=== PATIENT | male | born 1990 | race Asian ===

== ENCOUNTER 2021-06-16 09:41 | Emergency (ER) | payer MEDICAID ==
[~2021-06-16] VITALS: Ht 165.1 cm; Wt 81.0 kg
[2021-06-16 09:48] VITALS: BP 130/79
[2021-06-16] MEDS ORDERED: LORAZEPAM 1MG TABLET PO ONE (10:15)
[2021-06-16 10:18] LABS: BASOPHILS % 0.2 % (0.0-2.0); HEMATOCRIT. 46.3 % (42.0-52.0); HEMOGLOBIN. 15.5 g/dL (14.0-18.0); LYMPHOCYTES % 9.8 % (20.0-50.0); MEAN CORPUSCULAR VOLUME 77.6 fL (80.0-94.0); MONOCYTES % 6.9 % (2.0-8.0); NEUTROPHILS % 83.1 % (40.0-76.0); PLATELET 259 x1000/uL (130-400); RED BLOOD CELL COUNT 5.96 mill/uL (4.7-6.1); RED CELL DISTRIBUTION WIDTH 12.7 % (11.6-14.6)
[2021-06-16 10:25] LABS: CHLORIDE 103 mEq/L (98-107)
[2021-06-16 10:29] LABS: ETHANOL BLOOD < 10 mg/dL
[2021-06-16 11:23] LABS: CLARITY URINE CLEAR (CLEAR); COLOR URINE DARK YELLOW (YELLOW); KETONES URINE 2+ (NEGATIVE); LEUKOCYTE ESTERASE URINE TRACE (NEGATIVE); NITRITE URINE NEGATIVE (NEGATIVE); OCCULT BLOOD URINE NEGATIVE (NEGATIVE); PROTEIN URINE TRACE (NEGATIVE); SPECIFIC GRAVITY URINE 1.032 (1.005-1.030)
[2021-06-16 11:58] LABS: *BARBITURATES SCREEN URINE NEGATIVE (NEGATIVE)
[2021-06-16 11:59] LABS: *AMPHETAMINES SCREEN URINE NEGATIVE (NEGATIVE); *BENZODIAZEPINES SCREEN URINE NEGATIVE (NEGATIVE); *COCAINE SCREEN URINE NEGATIVE (NEGATIVE); METHADONE URINE SCREEN NEGATIVE (NEGATIVE); OPIATES URINE SCREEN NEGATIVE (NEGATIVE)
[2021-06-16 12:00] LABS: CANNABINOID URINE SCREEN PRESUMTIVE POSITIVE (NEGATIVE); PHENCYCLIDINE URINE SCREEN NEGATIVE (NEGATIVE)
[2021-06-16] MEDS ORDERED: LURA20TA MT (12:01)
== END 2021-06-16 12:44 | disposition home or self-care (01) ==
LOC: ER 10:19
DX: F30.9 Manic episode, unspecified (principal)
CPT/HCPCS: 36415; 80053; 80305; 80307; 80320; 80329; 81003; 85025; 99283; G0480